=== PATIENT | female | born 1960 | race Caucasian/White ===

== ENCOUNTER 2018-03-21 14:11 | Outpatient (CLI) | payer BC | END 2018-03-21 14:12 | disposition home or self-care (01) | LOC: BICMAMMO 14:11 | PROVIDERS: ATTEND Family Medicine | DX: Z12.31 Encounter for screening mammogram for malignant neoplasm of breast (principal); Z80.3 Family history of malignant neoplasm of breast | CPT/HCPCS: 77063; 77067 ==

== ENCOUNTER 2019-02-09 02:13 | Outpatient (CLI) | payer BC ==
[2019-02-09 16:18] LABS: #Basophils 0.1 thou/uL (0.0-0.2); #Eosinphils 0.6 thou/uL (0.0-0.7); #Lymphocytes 3.2 thou/uL (1.20-3.40); #Monocytes 0.5 thou/uL (0.11-0.59); #Neutrophils 4.5 thou/uL (1.40-6.50); %Basophils 1.4 % (0.0-1.0); %Eosinophils 6.9 % (0.0-10.0); %Lymphocytes 35.6 % (21.0-51.0); %Monocytes 5.6 % (0.0-10.0); %Neutrophils 50.5 % (42.0-75.0); Mean Corpuscular HGB CONC 32.4 g/dL (32.0-36.0); Mean Corpuscular Hemoglobin 28.8 pg (27.0-31.0); Mean Corpuscular Volume 88.7 fL (78.0-98.0); Mean Platelet Volume 8.8 fL (7.4-10.4); Platelet Count 233 thou/uL (130-400); RBC Distribution Width 12.2 % (11.5-14.5); Red Blood Cell (RBC) Count 4.85 mill/uL (4.20-5.40); White Blood Cell (WBC) Count 8.9 thou/uL (4.8-10.8)
[2019-02-09 16:27] LABS: Hemoglobin A1c 4.8 % (4.0-6.0)
[2019-02-09 16:31] LABS: Anion Gap 11 mmol/L (10-20); BUN (Urea Nitrogen) 14 mg/dL (9.8-20.1); Calc. Creatinine Clearance 0 mL/min (70-130); Calcium 9.2 mg/dL (7.8-10.44); Carbon Dioxide 26 mmol/L (22-29); Chloride 110 mmol/L (98-107); Estimated GFR-MDRD 60; Glucose 83 mg/dL (70-105); Potassium 4.3 mmol/L (3.5-5.1); Sodium 143 mmol/L (136-145)
== END 2019-02-09 02:14 | disposition home or self-care (01) ==
LOC: LABBT 02:13
PROVIDERS: ATTEND Surgery
DX: Z01.818 Encounter for other preprocedural examination (principal); K63.9 Disease of intestine, unspecified
CPT/HCPCS: 80048; 83036; 85025; 93005; 93010

== ENCOUNTER 2019-02-09 15:00 | Inpatient (IN) | payer BC ==
[2019-02-09 15:16] VITALS: BMI 24.4
[2019-02-13] MEDS ORDERED: Fentanyl 100 MCG/2 ML VIAL ONE ×4 (06:11→11:02)
[2019-02-13] MEDS ORDERED: Albumin 5% 500 ML ONE (06:11)
[2019-02-13] MEDS ORDERED: Ketamine 50 MG/ML (10ML VIAL) ONE (06:11)
[2019-02-13] MEDS ORDERED: Lidocaine 2% Jelly 5 ML TUBE ONE (06:11)
[2019-02-13] MEDS ORDERED: cefOXitin 2 GM VIAL ONE (06:28)
[2019-02-13] MEDS ORDERED: Sodium Chloride 0.9% 100 ML ONE (06:28)
[2019-02-13] MEDS ORDERED: Midazolam HCl 2 mg/2 ml Vial ONE (06:52)
[2019-02-13] MEDS ORDERED: Ondansetron HCl/PF 4 MG/2 ML Vial IVP PRN (09:43)
[2019-02-13] MEDS ORDERED: Promethazine HCl 25 MG/ML VIAL IM PRN ×2 (09:43→10:08)
[2019-02-13] MEDS ORDERED: Promethazine HCl 25 MG/ML VIAL SLOW IVP PRN (09:43)
[2019-02-13] MEDS ORDERED: traMADol HCl 50 MG TAB PO PRN ×2 (10:08)
[2019-02-13] MEDS ORDERED: Ondansetron PF 4 MG/2 ML Vial IVP PRN (10:08)
[2019-02-13] MEDS ORDERED: hydrALAZINE 20 MG/ML VIAL SLOW IVP PRN (10:08)
[2019-02-13] MEDS ORDERED: Fentanyl 100 MCG/2 ML VIAL SLOW IVP PRN ×2 (10:08)
--- NOTE | 2019-02-13 10:58 | OP ---
DATE OF PROCEDURE: 02/13/2019 PREOPERATIVE DIAGNOSIS: Left colon mass. POSTOPERATIVE DIAGNOSIS: Left colon mass. PROCEDURES PERFORMED: Laparoscopic left colectomy and laparoscopic mobilization of splenic flexure. ANESTHESIA: General. ESTIMATED BLOOD LOSS: 50 mL. COMPLICATIONS: None. SPECIMEN: Left colon with opened on the back table to reveal the large unresectable polyp to be present. DESCRIPTION OF PROCEDURE: She had undergone preop tap blocks for postop pain control. The patient was taken to the operating room and laid supine on the operating room table. After general anesthetic was obtained, a Sellers was placed, placed in lithotomy position. Her perineum and abdomen were all prepped and draped in a sterile fashion. Left subcostal 5 mm Optiview trocar was placed in usual fashion without injury and high-flow pneumoperitoneum was obtained. Right lower quadrant 12 mm port as well as an umbilical 5 mm port were placed under direct visualization. A left lower quadrant suprapubic 5 mm ports were placed as well. The patient was placed in Trendelenburg position. The small bowel was rotated out of the pelvis. The medial aspect of the sigmoid colon mesentery was incised and a medial to lateral dissection was performed. The left ureter was found and excluded from the dissection and not injured. The inferior mesenteric artery was taken near its base using the laparoscopic LigaSure. Dissection was taken down to the upper rectosigmoid border and at this location, circumferential dissection through the mesentery was performed and a laparoscopic stapler was fired across the rectosigmoid junction. Mesentery was marched up the left colon. All lateral attachments were taken down. Splenic flexure was mobilized in usual fashion. The tattoo was in the upper left colon. So, a full splenic flexure mobilization was performed. This allowed the distal transverse colon to be brought down in the pelvis under no tension. After this was obtained, the left lower quadrant incision was enlarged to 4 cm, a muscle-splitting incision was made and the Milind wound retractor placed. The proximal colon was brought up through here and just proximal to the tattoo, a colotomy was made and a 31 anvil was passed proximally, its tip brought out on the antimesenteric surface of the colon. Just distal to the anvil, the colon was stapled off. The colon was opened on the back table to reveal a large polyp to be in the specimen. This was placed back down into the abdominal cavity. It was able to brought down into the pelvis under no tension. The base of the EEA was brought up through the anus and its sharp pin brought on the antimesenteric surface of the colon below. This was connected to the anvil from above and the stapler was fired down. The anastomosis was performed. There were 2 good rings of tissue. The staple line was tested by air insufflation under water in the pelvis with no leakage, there was none. The air was evacuated. There was no bleeding in the abdomen. The right lower quadrant port site closed using GraNee needle and 0 Vicryl tie. All ports were removed under direct visualization without bleeding. Pneumoperitoneum was let down. The muscle-splitting incision in the left lower quadrant was closed anterior and posterior using PDS suture. All incisions were irrigated and closed using 4-0 Monocryl and Dermabond. The patient was sent to Recovery in stable condition. All instrument counts, needle counts, and lap counts were correct. Job ID: [id number]
[2019-02-13] MEDS ORDERED: cefOXitin Sodium/Dextrose,Iso 1 GM in Premix Bag 1 BAG IVPB SCH (11:00)
[2019-02-13] MEDS ORDERED: D5 1/2 NS w/20 mEq KCL 1,000 ML ONE (11:34)
[2019-02-13] MEDS: Acetaminophen 1,000 MG in Premix Bag 1 BAG IVPB SCH ×3 (11:37→23:02)
[2019-02-13] MEDS: D5 1/2 NS w/20 mEq KCL 1,000 ML IV SCH ×2 (11:41→17:33)
[2019-02-13] MEDS ORDERED: Bupivacaine HCl 0.5%/Epinephrine 1:200,000/PF 30 ml Vial ONE (12:03)
[2019-02-13] MEDS ORDERED: PROPOFOL 200 MG/20 ML VIAL ONE (12:24)
[2019-02-13] MEDS ORDERED: Rocuronium Bromide 10 MG/ML (10ML VIAL) ONE (12:24)
[2019-02-13] MEDS ORDERED: Glycopyrrolate 0.2 MG/ML 5 ML SYRINGE ONE (12:24)
[2019-02-13] MEDS ORDERED: Ondansetron PF 4 MG/2 ML Vial ONE (12:24)
[2019-02-13] MEDS ORDERED: Dexamethasone 20 MG/5 ML VIAL ONE (12:24)
[2019-02-13] MEDS ORDERED: ePHEDrine 50 MG/ML VIAL ONE (12:24)
[2019-02-13] MEDS: cefOXitin Sodium/Dextrose,Iso 1 GM in Premix Bag 1 BAG IVPB SCH ×2 (15:58→23:05)
[2019-02-13] MEDS: Enoxaparin Sodium 40 MG/0.4 ML SYRINGE SC SCH (20:30)
[2019-02-13] MEDS: Famotidine/PF 20 mg/2ml Vial SLOW IVP SCH (20:31)
[2019-02-13] MEDS: Famotidine 20 MG TAB PO SCH (20:34)
[2019-02-14] MEDS: D5 1/2 NS w/20 mEq KCL 1,000 ML IV SCH ×2 (05:09→11:57)
[2019-02-14] MEDS: Acetaminophen 1,000 MG in Premix Bag 1 BAG IVPB SCH (05:10)
[2019-02-14 06:54] LABS: #Basophils 0.1 thou/uL (0.0-0.2); #Lymphocytes 2.4 thou/uL (1.20-3.40); #Monocytes 0.8 thou/uL (0.11-0.59); #Neutrophils 7.9 thou/uL (1.40-6.50); %Basophils 0.6 % (0.0-1.0); %Eosinophils 0.3 % (0.0-10.0); %Lymphocytes 21.1 % (21.0-51.0); Mean Corpuscular HGB CONC 33.4 g/dL (32.0-36.0); Mean Corpuscular Hemoglobin 29.3 pg (27.0-31.0); Mean Platelet Volume 9.1 fL (7.4-10.4); Platelet Count 188 thou/uL (130-400); RBC Distribution Width 12.2 % (11.5-14.5); Red Blood Cell (RBC) Count 4.09 mill/uL (4.20-5.40); White Blood Cell (WBC) Count 11.1 thou/uL (4.8-10.8)
[2019-02-14 06:59] LABS: Anion Gap 10 mmol/L (10-20); BUN (Urea Nitrogen) 6 mg/dL (9.8-20.1); Calc. Creatinine Clearance 74 mL/min (70-130); Calcium 8.4 mg/dL (7.8-10.44); Carbon Dioxide 23 mmol/L (22-29); Chloride 111 mmol/L (98-107); Estimated GFR-MDRD 72; Glucose 103 mg/dL (70-105); Sodium 140 mmol/L (136-145)
[2019-02-14] MEDS: Famotidine 20 MG TAB PO SCH ×2 (08:42→20:16)
[2019-02-14] MEDS: Famotidine/PF 20 mg/2ml Vial SLOW IVP SCH ×2 (08:42→20:13)
[2019-02-14] MEDS ORDERED: Estradiol 1 MG TAB PO SCH (09:00)
[2019-02-14] MEDS ORDERED: D5 1/2 NS w/20 mEq KCL 1,000 ML IV SCH (11:31)
--- NOTE | 2019-02-14 13:33 | PDOC.GSPN ---
Surgery Progress Note: Subj - Subjective Narrative: Pain controlled, ambulatory, tolerating liquids Surgery Progress Note: Obj - Vital signs Vital signs: Vital Signs - Most Recent Temp Pulse Resp BP Pulse Ox 98.3 F 69 16 118/77 99 02/14/19 12:10 02/14/19 12:10 02/14/19 12:10 02/14/19 12:10 02/14/19 12:10 - Physical Exam General: no distress Cardiovascular: regular rate and rhythm Respiratory: clear to auscultation Abdomen: soft, appropriately tender Wound: healing well Surgery Progress Note: Results - Labs Result Diagrams: 02/14/19 06:24 02/14/19 06:24 Lab results: Laboratory Results - last 24 hr 02/13/19 02/14/19 02/14/19 09:56 06:24 06:24 WBC 11.1 H RBC 4.09 L Hgb 12.0 Hct 36.0 MCV 88.0 MCH 29.3 MCHC 33.4 RDW 12.2 Plt Count 188 MPV 9.1 Neutrophils % 71.0 Lymphocytes % 21.1 Monocytes % 7.0 Eosinophils % 0.3 Basophils % 0.6 Neutrophils # 7.9 H Lymphocytes # 2.4 Monocytes # 0.8 H Eosinophils # 0.0 Basophils # 0.1 Sodium 140 Potassium 4.0 Chloride 111 H Carbon Dioxide 23 Anion Gap 10 BUN 6 L Creatinine 0.82 Estimated GFR (MDRD) 72 Glucose 103 POC Glucose 169 H Calcium 8.4 Surgery Progress Note: A/P - Problem (1) Colonic mass Current Visit: Yes Code(s): K63.9 - DISEASE OF INTESTINE, UNSPECIFIED Status : Acute - Plan Plan: POD #1 -full liquids -change to hydrocodone -TKO IVF
[2019-02-14] MEDS: HYDROcodone/Acetaminophen 7.5/325 mg Tablet PO PRN (17:46)
[2019-02-14] MEDS: Enoxaparin Sodium 40 MG/0.4 ML SYRINGE SC SCH (20:16)
[2019-02-15] MEDS: HYDROcodone/Acetaminophen 7.5/325 mg Tablet PO PRN ×3 (06:27→18:46)
[2019-02-15] MEDS: Famotidine 20 MG TAB PO SCH ×2 (08:56→21:17)
[2019-02-15] MEDS: Famotidine/PF 20 mg/2ml Vial SLOW IVP SCH ×2 (08:57→21:18)
--- NOTE | 2019-02-15 13:20 | PDOC.GSPN ---
Surgery Progress Note: Subj - Subjective Patient reports: no new complaints Surgery Progress Note: Obj - Vital signs Vital signs: Vital Signs - Most Recent Temp Pulse Resp BP Pulse Ox 97.3 F L 69 14 135/81 98 02/15/19 11:35 02/15/19 11:35 02/15/19 11:35 02/15/19 11:35 02/15/19 11:35 - Physical Exam General: no distress Cardiovascular: regular rate and rhythm Respiratory: clear to auscultation Abdomen: soft, appropriately tender Wound: healing well Surgery Progress Note: Results - Labs Result Diagrams: 02/14/19 06:24 02/14/19 06:24 Surgery Progress Note: A/P - Problem (1) Colonic mass Current Visit: Yes Code(s): K63.9 - DISEASE OF INTESTINE, UNSPECIFIED Status : Acute - Plan Plan: POD 2 -tolerating full liquids -slight increase in bloating today. -home tomorrow
[2019-02-15] MEDS: Enoxaparin Sodium 40 MG/0.4 ML SYRINGE SC SCH (21:17)
[2019-02-16] MEDS: HYDROcodone/Acetaminophen 7.5/325 mg Tablet PO PRN ×2 (05:27→12:48)
[2019-02-16] MEDS: Famotidine 20 MG TAB PO SCH (08:55)
[2019-02-16] MEDS: Famotidine/PF 20 mg/2ml Vial SLOW IVP SCH (08:56)
[2019-02-16 12:37] VITALS: BP 128/78; TEMP 97.8
== END 2019-02-16 12:55 | disposition home or self-care (01) | DRG 331 ==
LOC: SURG A 02-13 06:00
PROVIDERS: ADMIT Surgery; ATTEND Surgery
PROC: 0DTG4ZZ Resection of Left Large Intestine, Percutaneous Endoscopic Approach (ICD-10-PCS; principal; 2019-02-13)
DX: K63.5 Polyp of colon (principal); Z87.891 Personal history of nicotine dependence
CPT/HCPCS: 36415; 36416; 80048; 85025; 88309; J0131; J0670; J0694; J1100; J1650; J2250; J2405; J2704; J3010; J3490; J7050; P9045; S0028

== ENCOUNTER 2019-03-23 12:50 | Outpatient (CLI) | payer BC ==
--- NOTE | 2019-03-23 13:11 | MMO ---
Bilateral MAMMO Bilat Screen [facility]. CLINICAL HISTORY: Patient is 58 years old and is seen for screening. The patient has the following family history of breast cancer: grandmother. The patient has no personal history of cancer. VIEWS: The views performed were: bilateral craniocaudal with tomosynthesis and bilateral mediolateral oblique with tomosynthesis. FILMS COMPARED: The present examination has been compared to prior imaging studies performed at [facility] on 10/26/2012, 01/01/2015, 03/17/2016, 03/18/2017 and 03/21/2018. MAMMOGRAM FINDINGS: There are scattered fibroglandular densities. There are no suspicious masses, suspicious calcifications, or new areas of architectural distortion. IMPRESSION: THERE IS NO MAMMOGRAPHIC EVIDENCE OF MALIGNANCY. A ROUTINE FOLLOW-UP MAMMOGRAM IN 1 YEAR IS RECOMMENDED. THE RESULTS OF THIS EXAM WERE SENT TO THE PATIENT. ACR BI-RADS Category 1 - Negative MAMMOGRAPHY NOTE: 1. A negative mammogram report should not delay a biopsy if a dominant of clinically suspicious mass is present. 2. Approximately 10% to 15% of breast cancers are not detected by mammography. 3. Adenosis and dense breasts may obscure an underlying neoplasm.
== END 2019-03-23 12:51 | disposition home or self-care (01) ==
LOC: BICMAMMO 12:50
PROVIDERS: ATTEND Family Medicine
DX: Z12.31 Encounter for screening mammogram for malignant neoplasm of breast (principal); Z80.3 Family history of malignant neoplasm of breast
CPT/HCPCS: 77063; 77067

== ENCOUNTER 2020-04-15 13:26 | Outpatient (CLI) | payer BC ==
--- NOTE | 2020-04-15 14:08 | MMO ---
Bilateral MAMMO Bilat Screen [facility]. CLINICAL HISTORY: Patient is 59 years old and is seen for screening. The patient has the following family history of breast cancer: grandmother. The patient has no personal history of cancer. VIEWS: The views performed were: bilateral craniocaudal with tomosynthesis and bilateral mediolateral oblique with tomosynthesis. FILMS COMPARED: The present examination has been compared to prior imaging studies performed at [facility] on 03/17/2016, 03/18/2017, 03/21/2018 and 03/23/2019. This study has been interpreted with the assistance of computer-aided detection. MAMMOGRAM FINDINGS: There are scattered fibroglandular densities. There are no suspicious masses, suspicious calcifications, or new areas of architectural distortion. IMPRESSION: THERE IS NO MAMMOGRAPHIC EVIDENCE OF MALIGNANCY. A ROUTINE FOLLOW-UP MAMMOGRAM IN 1 YEAR IS RECOMMENDED. THE RESULTS OF THIS EXAM WERE SENT TO THE PATIENT. ACR BI-RADS Category 1 - Negative MAMMOGRAPHY NOTE: 1. A negative mammogram report should not delay a biopsy if a dominant of clinically suspicious mass is present. 2. Approximately 10% to 15% of breast cancers are not detected by mammography. 3. Adenosis and dense breasts may obscure an underlying neoplasm. Reported by: MERVAT VACA MD Electonically Signed: [id number]
== END 2020-04-15 13:27 | disposition home or self-care (01) ==
LOC: BICMAMMO 13:26
PROVIDERS: ATTEND Family Medicine
DX: Z12.31 Encounter for screening mammogram for malignant neoplasm of breast (principal); Z80.3 Family history of malignant neoplasm of breast
CPT/HCPCS: 77063; 77067

== ENCOUNTER 2021-04-16 12:37 | Outpatient (CLI) | payer BC | END 2021-04-16 12:38 | disposition home or self-care (01) | LOC: BICMAMMO 12:37 | PROVIDERS: ATTEND Family Medicine | DX: Z12.31 Encounter for screening mammogram for malignant neoplasm of breast (principal); Z80.3 Family history of malignant neoplasm of breast | CPT/HCPCS: 77063; 77067 ==

== ENCOUNTER 2022-05-18 12:07 | Outpatient (CLI) | payer BC | END 2022-05-18 12:08 | disposition home or self-care (01) | LOC: BICMAMMO 12:07 | PROVIDERS: ATTEND Family Medicine | DX: Z12.31 Encounter for screening mammogram for malignant neoplasm of breast (principal) | CPT/HCPCS: 77063; 77067 ==

== ENCOUNTER 2023-07-07 12:09 | Outpatient (CLI) | payer BC | END 2023-07-07 12:10 | disposition home or self-care (01) | LOC: BICMAMMO 12:09 | PROVIDERS: ATTEND Family Medicine | DX: Z12.31 Encounter for screening mammogram for malignant neoplasm of breast (principal); Z80.3 Family history of malignant neoplasm of breast | CPT/HCPCS: 77063; 77067 ==

== ENCOUNTER 2024-12-05 15:19 | Outpatient (CLI) | payer BC | END 2024-12-05 15:20 | disposition home or self-care (01) | LOC: BICMAMMO 15:19 | PROVIDERS: ATTEND Nurse Practitioner Family | DX: Z12.31 Encounter for screening mammogram for malignant neoplasm of breast (principal); Z80.3 Family history of malignant neoplasm of breast | CPT/HCPCS: 77063; 77067 ==